=== PATIENT | male | born 1990 | race Caucasian/White ===

== ENCOUNTER 2017-04-01 14:49 | Emergency (ER) | payer MEDICAID, OTHER ==
[~2017-04-01] VITALS: Ht 182.9 cm; Wt 79.4 kg
[2017-04-01 15:29] LABS: Basophils # (auto) 0 uL; Eosinophils # (auto) 0 uL; Hemoglobin 10.7 g/dL (13.5-17.5); Lymphocytes # (auto) 1.7 uL; Mean Platelet Volume 7.7 fL (6.9-10.8); Monocytes # (auto) 0.4 uL; Monocytes % (auto) 6.5 % (0.0-12.0); Red Cell Distribution Width 18.1 % (11.8-14.3)
[2017-04-01 15:31] LABS: Basophils % (auto) 0.7 % (0.0-2.0); Eosinophils % (auto) 0.4 % (0.0-7.0); Hematocrit 33.8 % (41.0-53.0); Lymphocytes % (auto) 27.5 % (10.0-50.0); Mean Corpuscular Hemoglobin 22.4 pg (28.0-32.0); Mean Corpuscular Hgb Conc. 31.7 g/dL (32.0-36.0); Mean Corpuscular Volume 70.5 fL (80.0-100.0); Neutrophils # (auto) 4.1 uL; Neutrophils % (auto) 64.9 % (37.0-80.0); Nucleated Red Blood Cells % 0.2 %; Platelet Count (auto) 251 10^3/uL (140-450); White Blood Cell 6.3 10^3/uL (4.4-10.8)
[2017-04-01 16:04] LABS: Albumin 4.1 g/dL (3.4-5.0); BUN/Creatinine Ratio 12.2; Bilirubin, Total 0.6 mg/dL (0.2-1.0); Calcium 8.6 mg/dL (8.5-10.1); Potassium 3.5 mmol/L (3.5-5.1); Total Protein 7.8 g/dL (6.4-8.2)
[2017-04-01] MEDS: KETOROLAC TROMETH 60MG/2ML VIAL IM ONE ×2 (16:30→19:45)
[2017-04-01 17:22] LABS: Amylase 34 U/L (25-115)
[2017-04-01 20:29] VITALS: BP 101/76
== END 2017-04-01 20:44 | disposition home or self-care (01) ==
LOC: ER 14:49
DX: S39.012A Strain of muscle, fascia and tendon of lower back, initial encounter (principal); F12.10 Cannabis abuse, uncomplicated; X58.XXXA Exposure to other specified factors, initial encounter; Y93.89 Activity, other specified; Y92.89 Other specified places as the place of occurrence of the external cause; Y99.8 Other external cause status; Z88.8 Allergy status to other drugs, medicaments and biological substances
CPT/HCPCS: 36415; 74176; 80053; 82150; 83690; 85025; 96372; 99285; J1885